=== PATIENT | male | born 1955 | race Two or more races ===

== ENCOUNTER 2019-12-16 20:12 | Emergency (ER) | payer MEDICARE, OTHER ==
--- NOTE | 2019-12-16 21:03 | ER Document Report ---
ED Medical Screen (RME) - General Chief Complaint: Back Pain Stated Complaint: LOWER BACK PAIN Time Seen by Provider: 12/16/19 20:56 Mode of Arrival: Ambulatory Information source: Patient Notes: 64-year-old male presented to ED for mid right back pain. He states he has a history of kidney stones and a horseshoe kidney. He states he went to her [facility] yesterday and they did a kidney ultrasound and told him that his kidneys were okay and then at 11:00 today he had nausea vomiting and severe pain that made him go to his knees. He states this is the same pain he had when he had kidney stones many years ago. He is got a history of cholesterol high blood pressure depression asthma and he has had a rotator cuff repair on the right and L4-L5 fusion. Patient is alert oriented respirations regular nonlabored speaking in full sentences. He states his kidney pain is not as bad now as it was earlier. I have greeted and performed a rapid initial assessment of this patient. A comprehensive ED assessment and evaluation of the patient, analysis of test results and completion of medical decision making process will be conducted by an additional ED providers. - Related Data Allergies/Adverse Reactions: No Known Allergies Allergy (Verified 12/16/19 20:52) Home Medications: Atorvastatin, HCTZ, Losartan, Citalopram, Albuterol Past Medical History - Social History Frequency of alcohol use: Rare Drug Abuse: None - Past Medical History Cardiac Medical History: Reports: Hx Hypercholesterolemia, Hx Hypertension Pulmonary Medical History: Reports: Hx Asthma Renal/ Medical History: Reports: Hx Kidney Stones Psychiatric Medical History: Reports: Hx Depression Past Surgical History: Reports: Hx Orthopedic Surgery - Right rotator cuff, L4L5 fusion Physical Exam - Vital signs Vitals: Temp Pulse Resp BP Pulse Ox 98.9 F 90 20 156/73 H 98 12/16/19 20:17 12/16/19 20:17 12/16/19 20:17 12/16/19 20:17 12/16/19 20:17 Course - Vital Signs Vital signs: Temp Pulse Resp BP Pulse Ox 98.9 F 90 20 156/73 H 98 12/16/19 20:17 12/16/19 20:17 12/16/19 20:17 12/16/19 20:17 12/16/19 20:17
[2019-12-16 21:26] LABS: ABSOLUTE BASOPHILS # (AUTO) 0.1 10^3/uL (0.0-0.2); ABSOLUTE EOSINOPHILS # (AUTO) 0.3 10^3/uL (0.0-0.6); ABSOLUTE LYMPHOCYTES (AUTO) 2.3 10^3/uL (0.5-4.7); ABSOLUTE MONOCYTES (AUTO) 0.6 10^3/uL (0.1-1.4); ABSOLUTE NEUT (AUTO) 3.1 10^3/uL (1.7-8.2); APPEARANCE,URINE SLIGHTLY-CLOUDY; BASOPHILS % (AUTO) 1.3 % (0-2); BILIRUBIN,URINE NEGATIVE (NEGATIVE); COLOR,URINE YELLOW; GLUCOSE, URINE NEGATIVE (NEGATIVE); HEMATOCRIT 39.3 % (37.9-51.0); HEMOGLOBIN 14.2 g/dL (13.5-17.0); KETONES,URINE NEGATIVE (NEGATIVE); LEUKOCYTE ESTERASE,URINE NEGATIVE (NEGATIVE); LYMPHOCYTES % (AUTO) 36.4 % (13-45); MEAN CORPUSCULAR HGB CONC 36.1 g/dL (32.0-36.0); MEAN CORPUSCULAR VOLUME 89 fl (80-97); MONOCYTES % (AUTO) 9.8 % (3-13); NITRITE,URINE NEGATIVE (NEGATIVE); PLATELET COUNT 248 10^3/uL (150-450); PROTEIN,URINE NEGATIVE (NEGATIVE); RED BLOOD COUNT 4.44 10^6/uL (4.35-5.55); SEGMENTED NEUTROPHILS % (AUTO) 48.5 % (42-78); TOTAL CELLS COUNTED % (AUTO) 100 %; URINE SPECIFIC GRAVITY 1.018; UROBILINOGEN,URINE NEGATIVE mg/dL (<2.0); WHITE BLOOD COUNT 6.4 10^3/uL (4.0-10.5)
[2019-12-16 21:40] LABS: ALBUMIN 4.3 g/dL (3.5-5.0); ALKALINE PHOSPHATASE 75 U/L (38-126); ANION GAP 6 (5-19); ASPARTATE AMINO TRANSFERASE 49 U/L (17-59); BILIRUBIN,TOTAL 0.5 mg/dL (0.2-1.3); BLOOD UREA NITROGEN 16 mg/dL (7-20); CALCIUM 9.8 mg/dL (8.4-10.2); CARBON DIOXIDE 28 mmol/L (22-30); CHLORIDE 103 mmol/L (98-107); GLUCOSE 109 mg/dL (75-110); POTASSIUM 3.9 mmol/L (3.6-5.0); TOTAL PROTEIN 7.3 g/dL (6.3-8.2)
--- NOTE | 2019-12-16 21:47 | RADIOLOGY REPORT (SQ) ---
EXAM DESCRIPTION: CT ABDOMEN PELVIS WITHOUT IV CONTRAST COMPLETED DATE/TME: 12/16/2019 21:00 CLINICAL HISTORY: 64 years, Male, Flank pain worse on the right has horseshoe kidney This exam was performed according to our departmental dose-optimization program which includes automated exposure control, adjustment of the mA and/or kVp according to patient size and/or use of iterative reconstruction technique where applicable. FINDINGS: Visualized lung bases are within normal limits. Liver is moderately diffusely hypodense consistent with fatty infiltration. Spleen, pancreas, adrenal glands are within normal limits. No biliary dilatation. There is a horseshoe kidney noted. Both kidneys demonstrate multiple tiny nonobstructive calculi measuring up to 3 mm. There is mild fullness of the left ureter. There is a tiny 2 mm left distal ureteral calculus just proximal to the UVJ. No dilated loops of bowel to suggest obstruction. Mild amount of stool in the colon. The appendix is normal. No free fluid or free air. No abdominal or pelvic lymphadenopathy. Abdominal aorta moderately calcified without aneurysm. IMPRESSION: Tiny 2 mm left distal ureteral calculus with mild fullness of the left aorta. Bilateral nonobstructive renal calculi. Horseshoe kidney, anatomical variant.
[2019-12-16] MEDS ORDERED: NORMAL SALINE 1000 ML 1,000 ML IV ONE (23:51)
[2019-12-16] MEDS ORDERED: KETOROLAC TROMETHAMINE INJ/PF 30 MG/1 ML SDV IV ONE (23:51)
[2019-12-16] MEDS ORDERED: ONDANSETRON HCL INJ/PF 4 MG/2 ML SDV IV ONE (23:52)
--- NOTE | 2019-12-17 00:17 | ER Document Report ---
ED General - General Chief Complaint: Back Pain Stated Complaint: LOWER BACK PAIN Time Seen by Provider: 12/16/19 20:56 Primary Care Provider: LUIS ALBERTO DE LA VEGA PA-C [Primary Care Provider] - Follow up as needed Mode of Arrival: Ambulatory - [facility] Notes: Chief complaint: Left flank pain HPI: 64-year-old male with history of horseshoe kidney and recurrent renal stones presents tonight with 24-hour history of worsening left flank pain with associated mild nausea with one episode of vomiting. No fever. Patient says he saw some gross blood in his urine earlier today. He describes his pain is very severe 8/10 intensity at this time. Pain starts in the flank area and radiates to left lower quadrant. - Related Data Allergies/Adverse Reactions: No Known Allergies Allergy (Verified 12/16/19 20:52) Home Medications: Atorvastatin, HCTZ, Losartan, Citalopram, Albuterol Past Medical History - General Information source: Patient - Social History Smoking Status: Never Smoker Frequency of alcohol use: Rare Drug Abuse: None Family History: Reviewed & Not Pertinent - Past Medical History Cardiac Medical History: Reports: Hx Hypercholesterolemia, Hx Hypertension Pulmonary Medical History: Reports: Hx Asthma Renal/ Medical History: Reports: Hx Kidney Stones Psychiatric Medical History: Reports: Hx Depression Past Surgical History: Reports: Hx Orthopedic Surgery - Right rotator cuff, L4L5 fusion Review of Systems - Review of Systems Notes: Constitutional: Negative for fever. HENT: Negative for sore throat. Eyes: Negative for visual changes. Cardiovascular: Negative for chest pain. Respiratory: Negative for shortness of breath. Gastrointestinal: As per HPI. Genitourinary: As per HPI. Musculoskeletal: Chronic low back pain. Skin: Negative for rash. Neurological: Negative for headaches, focal weakness or numbness. 10 point ROS negative except as marked above and in HPI. Physical Exam - Vital signs Vitals: Temp Pulse Resp BP Pulse Ox 98.9 F 90 20 156/73 H 98 12/16/19 20:17 12/16/19 20:17 12/16/19 20:17 12/16/19 20:17 12/16/19 20:17 - Notes Notes: GENERAL: Well-developed well-nourished man of approximately stated age appearing in moderate pain. SKIN: Good turgor no rashes. HEAD: Normocephalic atraumatic. EYES: PERRLA. EOMI. Conjunctivae and sclerae clear. EARS: CANALS AND TMS CLEAR. NOSE: CLEAR. MOUTH: Moist mucosa. Good dentition. No stridor or edema. No drooling. NECK: Supple. No masses or thyromegaly. No adenopathy. Carotids 2+ without bruits. No JVD. BACK: Symmetrical without tenderness. CHEST: Respirations unlabored. Breath sounds clear and symmetrical. HEART: Regular rhythm. No murmur gallop or rub. ABDOMEN: Soft nontender without masses, organomegaly or rebound. Bowel sounds normally active. No bruits. GENITALIA: Deferred. EXTREMITIES: No edema. No calf tenderness. Cap refill less than 1.5 seconds. Dorsalis pedis and posterior tibial pulses 3+ and symmetrical. NEUROLOGICAL: GCS 15. Alert and oriented x3. Normal gait. Fluent speech. Cr anial nerves II through XII intact. Sensorimotor and cerebellar normal. Normal tone. PSYCHIATRIC: Appropriate affect. Course - Re-evaluation Re-evalutation: 12/17/19 01:13 Patient has a horseshoe kidney and a left-sided 2 mm stone of the distal ureter with mild hydronephrosis. He was also noted to have blood in his urine speci men. He is received some Toradol and Zofran here as well as normal saline and his pain has gone down from an 8/10 to 4/10. He wants to go home and I think this is appropriate. He can follow-up within the next 24 to 48 hours with his primary care physician or urology. Findings, clinical impression and plan of treatment have been discussed with patient/family. Understanding of current findings and recommendations has been acknowledged by them and there is agreement regarding disposition and follow-up. - Vital Signs Vital signs: Temp Pulse Resp BP Pulse Ox 97.9 F 66 18 144/78 H 99 12/17/19 01:06 12/17/19 01:06 12/17/19 01:06 12/17/19 01:06 12/17/19 01:06 - Laboratory Result Diagrams: 12/16/19 21:10 12/16/19 21:10 Laboratory results interpreted by me: 12/16/19 12/16/19 12/16/19 21:10 21:10 21:10 MCHC 36.1 H Est GFR (MDRD) Non-Af 59 L ALT 57 H Urine Blood SMALL H Urine Ascorbic Acid 40 H - Diagnostic Test Radiology reviewed: Reports reviewed - CT urogram per radiologist: 2 mm stone left distal ureter just proximal to UVJ with mild hydronephrosis. Horseshoe kidney present. Discharge - Discharge Clinical Impression: Ureterolithiasis left, Horseshoe kidney Condition: Stable Disposition: HOME, SELF-CARE Additional Instructions: Kidney Stone You are passing or have passed a kidney stone. These stones are usually due to increased calcium or uric acid concentrations in your urine. Stones within the kidney itself are not painful. The pain occurs as the stone leaves the kidney to pass down the long tube, called the ureter, leading to the bladder. If the stone is small, it will usually pass by itself. Most patients can pass the stone at home. You will usually receive medications for pain, nausea or vomiting, and sometimes a medication to assist in passing the kidney stone. However, if the pain is very severe or if vomiting prevents you from taking oral pain medications, you may need to return for further treatment. Drink three or four quarts of fluids per day. You will be given pain medication (if needed) and urine strainers. Strain all your urine to see if the stone passes. If your doctor has asked you to bring the stone in for analysis, return with the stone once it has passed. Return if pain or vomiting become severe, if you develop a high fever, if you are unable to pass your urine, or if other unusual symptoms occur. Return here as needed for new or worsening symptoms: Pain that is worsening or unimproved Uncontrolled vomiting High fever or shaking chills Overall worsening Increase oral fluids. Follow-up with your primary care physician or urology specialist within the next 2 days. Prescriptions: Hydrocodone/Acetaminophen [[place] 5-325 mg Tablet] 2 tab PO Q6 5 Days #20 tablet Referrals: LUIS ALBERTO DE LA VEGA PA-C [Primary Care Provider] - Follow up as needed
[2019-12-17] MEDS ORDERED: HYDROCODONE/ACETAMINOPHEN 5-325 MG (6 TAB/ER DISP) PO PRN (01:02)
[2019-12-17] MEDS ORDERED: ONDANSETRON ODT 4 MG TAB (6 TAB/ER DISP) PO PRN (01:02)
[2019-12-17 01:11] VITALS: BP 144/78
== END 2019-12-17 01:40 | disposition home or self-care (01) ==
LOC: ER 20:12
DX: N13.2 Hydronephrosis with renal and ureteral calculous obstruction (principal); Q63.1 Lobulated, fused and horseshoe kidney; R11.2 Nausea with vomiting, unspecified; R10.9 Unspecified abdominal pain; R31.0 Gross hematuria; M54.5 Low back pain; G89.29 Other chronic pain; I10 Essential (primary) hypertension; F32.9 Major depressive disorder, single episode, unspecified; E78.00 Pure hypercholesterolemia, unspecified; J45.909 Unspecified asthma, uncomplicated; Z79.899 Other long term (current) drug therapy
CPT/HCPCS: 99284; 96361; 96374; 96375; 36415; 85025; 80053; 81001; 74176; J1885; J2405; J7030; A9270 ×2

== ENCOUNTER → 2020-03-29 | Outpatient (CLI) | payer MEDICARE, OTHER ==
[2020-03-29 09:57] LABS: HEMATOCRIT 39.6 % (37.9-51.0); HEMOGLOBIN 14.3 g/dL (13.5-17.0); MEAN CORPUSCULAR HGB CONC 36.1 g/dL (32.0-36.0); MEAN CORPUSCULAR VOLUME 89 fl (80-97); PLATELET COUNT 233 10^3/uL (150-450); RED BLOOD COUNT 4.47 10^6/uL (4.35-5.55); RED CELL DISTRIBUTION WIDTH 12.9 % (11.5-14.0); WHITE BLOOD COUNT 5.9 10^3/uL (4.0-10.5)
[2020-03-29 10:04] LABS: APPEARANCE,URINE CLEAR; BILIRUBIN,URINE NEGATIVE (NEGATIVE); COLOR,URINE YELLOW; GLUCOSE, URINE NEGATIVE (NEGATIVE); KETONES,URINE NEGATIVE (NEGATIVE); LEUKOCYTE ESTERASE,URINE TRACE (NEGATIVE); NITRITE,URINE NEGATIVE (NEGATIVE); PROTEIN,URINE NEGATIVE (NEGATIVE); URINE SPECIFIC GRAVITY 1.019; UROBILINOGEN,URINE NEGATIVE mg/dL (<2.0)
[2020-03-29 10:35] LABS: ALBUMIN 4.4 g/dL (3.5-5.0); ANION GAP 9 (5-19); BLOOD UREA NITROGEN 13 mg/dL (7-20); CALCIUM 10.1 mg/dL (8.4-10.2); CARBON DIOXIDE 29 mmol/L (22-30); CHLORIDE 104 mmol/L (98-107); GLUCOSE 89 mg/dL (75-110); PHOSPHORUS 3.7 mg/dL (2.5-4.5); POTASSIUM 4.6 mmol/L (3.6-5.0)
[2020-03-30 12:37] LABS: CREATININE URINE 219.9 mg/dL (Not Estab.); MICROALBUMIN URINE 9.2 ug/mL (Not Estab.)
== END ==
LOC: OD 09:15
PROVIDERS: ATTEND Physician Assistant Medical
DX: N18.30 Chronic kidney disease, stage 3 unspecified (principal)
CPT/HCPCS: 36415; 80069; 81001; 82043; 82570; 83970; 85027